=== PATIENT | male | born 1965 | race Two or more races ===

== ENCOUNTER 2017-11-04 00:07 | Emergency (ER) | payer MEDICAID, OTHER ==
[~2017-11-04] VITALS: Ht 175.3 cm; Wt 110.0 kg
[2017-11-04 00:11] VITALS: BP 152/91
== END 2017-11-04 00:39 | disposition home or self-care (01) ==
LOC: ED 00:25
DX: Z02.89 Encounter for other administrative examinations (principal); F17.200 Nicotine dependence, unspecified, uncomplicated; Z88.1 Allergy status to other antibiotic agents; V43.52XA Car driver injured in collision with other type car in traffic accident, initial encounter; Y93.I9 Activity, other involving external motion; Y92.488 Other paved roadways as the place of occurrence of the external cause; Y99.8 Other external cause status
CPT/HCPCS: 99283